=== PATIENT | male | born 2000 | race Caucasian/White ===

== ENCOUNTER 2024-03-04 20:07 | Emergency (ER) | payer SELFPAY ==
--- OUTSIDE RECORDS SUMMARY | 2024-03-04 20:14 | XMS REPORT | Continuity of Care Document ---
Author Name Unknown Address [address] [place] [address] [facility] Address [address] [place] [address] Care Team Providers Care Red Leader Name Role Phone FOUND, PCP NOT Primary Care Physician Unavailab MEI Chen Attending Clinician Unavailable Doctor Unassigned, [place] Attending Clinician U brennan Love MD, Rowdy Chowdhury Attending Clinician Kenan Mathew MD Attending Clinician Physician, No Primary or Family Admitting Clinic kwasi Unavailable Payers Payer Name Policy Type Policy Number Effective Date Expirati on Date Source Problems Condition Name Condition Details Condition Category Status Onset Date Resolution Date Last Treatment Date Treating Clinician Comments Source ODD (oppositio nal defiant disorder) ODD (oppositio nal defiant disorder) Disease Active 06-16 00:00: 00 [facility] Parent-chi ld relational problem Parent-chi ld relational problem Disease Active 6-05 00:00: 00 [facility] Bipolar I disorder, most recent episode (or current) unspecifie d Bipolar I disorder, most recent episode (or current) unspecifie d Disease Active 3-20 00:00: 00 [facility] Ingrown left greater toenail Ingrown left greater toenail Disease Active 04-14 00:00: 00 [facility] ADHD (attention deficit hyperactiv ity disorder), combined type ADHD (attention deficit hyperactiv ity disorder), combined type Disease Active 04-07 00:00: 00 [facility] Opposition al defiant disorder Opposition al defiant disorder Disease Active 04-07 00:00: 00 [facility] Allergies, Adverse Reactions, Alerts Allergy Name Allergy Type Status Severity Reaction(s) Onset Date Inactive Date Treating Clinician Comments Source risperid one DA Active MO 07-24 00:00: 00 [facility] risperid one DA Active MO DROWSINESS 07-24 00:00: 00 [facility] PENICILL IN DRUG INGREDI Active Unknown-Cmnt 02-24 00:00: 00 [facility] Penicill in Propensi ty to adverse reaction s Active Unknown - See comments 02-24 00:00: 00 "Makes him look like a zombie"Mo ther and grandnvth er state no rxn to penicilli n. Pt reports rxn. [facility] Penicill in Propensi ty to adverse reaction s Active Unknown - See comments 02-24 00:00: 00 "Makes him look like a zombie"Mo ther and grandmoth er state no rxn to penicilli n. Pt reports rxn. [facility] No Known Allergie s DA Active U 18 00:00: 00 [facility] D-CHLORP HEIRAM-P YRILAMIN -PE-DM DRUG Active Other-Cmnt 2013-11 1-10 00:00: 00 [facility] D-Chlorp heiram-P yrilamin -Pe-Dm Propensi ty to adverse reaction s Active Other - See comments 2013-11 00:00: 00 "Makes him grow breasts." [facility] Social History Social Habit Start Date Stop Date Quantity Comments Source Exposure to SARS-CoV-2 (event) Not sure [facility] Sex Assigned At [facility] Tobacco use and exposure 2017-09-10 00:00:00 2017-09-10 00:00:00 Never used [facility] Alcohol intake 2017-09-10 00:00:00 2017-09-10 00:00:00 Current non-drinker of alcohol (finding) [facility] Tobacco Comment 2017-02-24 00:00:00 2017-02-24 00:00:00 Parents smoke in and out of house [facility] Smoking Status Start Date Stop Date Source Never smoker [facility] Medications Ordered Medication Name Filled Medication Name Start Date Stop Date Current Medication? Ordering Clinician Indication Dosage Frequency Signature (SIG) Comments Components Source predniSONE 20 mg tablet 07-21 00:00: 00 Yes [id number] 40mg PO QD Uni vers [facility] cephALEXin (KEFLEX) 500 mg capsule 07-21 00:00: 00 07-29 04:59 :00 No [id number] 500mg Take 1 capsule by mouth 4 (four) times daily for 7 days. [facility] lithium carbonate 300 mg tablet 2016-11 00:00: 00 Yes Take 1 tab in the morning and 2 tabs at bedtime. [facility] SERTraline 100 mg tablet 2016-11 00:00: 00 Yes 100mg Take 1 tablet by mouth at bedtime. [facility] ziprasidone 20 mg capsule 2016-11 00:00: 00 Yes Take 1 capsule by mouth in the morning and 1 capsule by mouth at bedtime. Take with food. [facility] ziprasidone 80 mg capsule 2016-11 00:00: 00 Yes 80mg Take 1 capsule by mouth at bedtime. Take with food. [facility] acyclovir 200 mg capsule 05-18 00:00: 00 Yes 800 mg, oral, 4 times a day for 7 days [facility] docusate 100 mg capsule 04-30 00:00: 00 Yes 100mg Take 1 capsule by mouth daily. [facility] HYDROcodone -acetaminop hen 5-325 mg tablet 04-30 00:00: 00 Yes 1{tbl} Take 1 tablet by mouth every 6 (six) hours as needed for Pain (scale 7-10). [facility] Vital Signs Vital Name Observation Time Observation Value Comments S jill Systolic blood pressure 2020-07-22 02:54:00 127 mm[Hg] [facility] Diastolic blood pressure 2020-07-22 02:54:00 63 mm[Hg] [facility] Heart rate 2020-07-22 02:54:00 89 /min [facility] Body temperature 2020-07-22 02:54:00 37.17 Comfort [facility] Respiratory rate 2020-07-22 02:54:00 18 /min [facility] Body height 2020-07-22 02:54:00 170.2 cm [facility] Body weight 2020-07-22 02:54:00 95.255 kg [facility] BMI 2020-07-22 02:54:00 32.89 kg/m2 [facility] Oxygen saturation in Arterial blood by Pulse oximetry 2020-07-22 02:54:00 99 /min [facility] Systolic blood pressure 2020-06-17 06:17:00 141 mm[Hg] [facility] Diastolic blood pressure 2020-06-17 06:17:00 74 mm[Hg] [facility] Heart rate 2020-06-17 06:17:00 67 /min [facility] Body temperature 2020-06-17 06:17:00 36.89 Comfort [facility] Respiratory rate 2020-06-17 06:17:00 16 /min [facility] Body weight 2020-06-17 06:17:00 95.255 kg [facility] Oxygen saturation in Arterial blood by Pulse oximetry 2020-06-17 06:17:00 95 /min [facility] Procedures Procedure Date / Time Performed Performing Clinician Source AUTHORIZATION FOR RELEASE OF PHI 2020-08-12 05:01:00 Doctor Unassigned, [place] [facility] XR KNEE <3 VW LEFT 2020-06-17 06:45:00 Kenan Mathew [facility] Encounters Start Date/Time End Date/Time Encounter Type Admission Type Attending Clinicians Care Facility Care Department Encounter ID Source 2021-09-20 14:49:59 Emergency [facility] [id number] [facility] 2021-09-20 08:49:42 Emergency [facility] [id number] [facility] 2020-07-24 01:58:00 Inpatient [facility] [id number] 67 [facility] 2023-07-18 21:41:00 2023-07-19 00:50:00 Emergency [facility] [id number] [facility] 2023-07-18 21:41:00 2023-07-19 00:50:00 emergency [id number] 2020-08-12 00:00:00 2020-08-12 00:00:00 Orders Only Doctor Unassigned, [place] [facility] [id number] [facility] 2020-07-21 22:00:00 2020-07-21 22:36:00 Emergency [facility] ([facility]) [id number] [facility] 2020-06-17 01:18:11 2020-06-17 02:18:00 Emergency Kenan Mathew [facility] [id number] [facility] Results Test Description Test Time Test Comments Results Result Co mments Source - CT L-SPINE W/O [id number] 02:47:00FAX: Alejandra Botello MD [place]: St: REG Name: IVONNE DEL VALLE [facility] : 2000 Age/S: 19/M [address] [facility] Unit: [id number] Loc: [address] Phys: [place] [id number] Acct: [id number] Dis Date: Status: REG ER PHONE #: [phone] Exam Date: 07/24/2020 0231 FAX #: [phone] Reason: LEFT LEG NUMBNESS EXAMS: CPT CODE: [id number] CT L-SPINE W/O CONTRAST [id number] Location: CT lumbar spine, 07/24/20 TECHNIQUE: CT examination of the lumbosacral spine was performed obtaining contiguous slice thickness in the axial plane from the lower thoracic region through the sacrum. Acquisition of 2-D reformatted imaging in the sagittal and coronal plane. This was acquired using MPRsoftware on the CT workstation . The examination was performed on an updated helical CT scanner utilizing low-dose radiation technique. Automatic exposure control was utilized to reduce radiation dose CLINICAL HISTORY: Left leg numbness in this 19 year-old patient presenting to the emergency room COMPARISON EXAM : None of the lumbar spine FINDINGS: Normal alignment is seen. Do not see any transitional anatomy in this patient. The canal is capacious. Do not see a pars defect or fracture. No significant ventral epidural defect is identified. No stenosis or nerve root impingement suspected. No lytic or blastic lesions are identified. Disc space height well maintained. IMPRESSION: Unremarkable CT examination lumbosacral spine Electronically Signed by aWde Westfall on 11/2019 at 0247 Reported and signed by: Mayela Westfall M.D. PAGE 1 Signed Report (CONTINUED) FAX: Alejandra Botello MD [place]: St: REG Name: IVONNE DEL VALLE [facility] : 2000 Age/S: 19/M [address] [facility] Unit: [id number] Loc: [address] Phys: [place] [id number] Acct: [id number] Dis Date: Status: REG ER PHONE #: [phone] Exam Date: 07/24/2020 0231 FAX #: [phone] Reason: LEFT LEG NUMBNESS EXAMS: CPT CODE: [id number] CT L-SPINE W/O CONTRAST [id number] (Continued) CC: Alejandra Zambrano MD Technologist: KUMAR John Dt/Tm: 07/24/2020 (0247) [id number] Orig Print D/T: S: 07/24/2020 (0250 PAGE 2 Signed Report Notes Date/Time Note Provider Source 2020-07-24 02:16:00 [id number] 6:00 [facility] ([facility])EMERGENCY PROVIDER REPORTREPORT#:[id number] REPORT STATUS: SignedDATE:07/24/20 TIME: 215 PATIENT: IVONNE DEL VALLE UNIT #: [id number]#: [id number] ROOM/BED:AGE: 19 SEX: M PCP PHYS: No Primary or Family PhysicianSERVICE AUTHOR: Alejandra Zambrano MD * ALL edits or amendments must be made on the electronic/computer document * HPI-Extremity Prob Lower GeneralConfirmed Patient YesInitial Greet Date/Time 07/24/20 0206 PresentationChief Complaint Leg problem L Free Text HPI NotesFree Text HPI [id number] white male with PMH of bipolar disorder brought in by EMS with complaint of left leg numbness that started when he got up at 1AM in the morningto walk outside to call his mom. Patient said initially he thought his leg was "asleep." Patient states he also had pain shoot down the back of his left leg. Patient denies fever, cough, injury, fall, nausea, vomiting, or back pain. Patient also has a rash on his upper and lower extremities and torso from poisonivy exposure. Review of Systems Free Text ROS NotesFree Text ROS NotesConstitutional: Denies fever, denies chills, denies generalized weaknessENT: Denies nasal congestion, denies sore throatRespiratory: Denies cough, denies dyspnea on exertion, denies shortness of breath, denies wheezingCardiovascular: Denies chest pain, denies MARTINEZ, denies edema, denies orthopnea, denies palpitations, denies syncopeABD: Denies abdominal pain, nausea, vomiting, or diarrhea.Musculoskeletal: Denies back pain, denies extremity pain, denies extremity swelling, denies joint pain, denies joint swelling, denies neck pain, complains of left lower extremity numbnessSkin: Denies laceration, denies rash, denies abrasion, denies abscess, denies erythemaNeurologic: Denies headache, denies focal weakness, denies dizziness, denies LOC, denies altered mental status, denies slurred speech, denies lightheadedness, denies syncope Past Medical History - AdultStated Complaint left leg numbnessAllergiesCoded Allergies:risperidone (From RISPERDAL) (Intermediate, DROWSINESS 07/24/20) Home MedicationsReported MedicationsNo Known Home Medications Discontinued Reported MedicationsARIPiprazole (ABILIFY) 30 MG PO DAILY DIVALPROEX DR (DEPAKOTE DR) 500 MG PO BID Additional Medical HistoryADHDAdditional Surgical HistoryL femur surgeryAlcohol Use Denies EtOH useSmoking status for patients 13 years old or older: 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 Physical Exam Vital SignsVital SignsFirst Documented: Result Date Time Pulse Ox 96 07/24 0200 B/P 137/70 07/24 0200 B/P Mean 92 07/24 0200 O2 Delivery Room air 07/24 0200 Temp 37.2 07/24 0200 Pulse 82 07/24 0200 Resp 18 07/24 0200 Last Documented: Result Date Time Pulse Ox 95 07/24 0510 B/P 119/62 07/24 0510 B/P Mean 81 07/24 0510 O2 Delivery Room air 07/24 0510 Temp 37.1 07/24 0510 Pulse 62 07/24 0510 Resp 18 07/24 0510 Review of Vital Signs Reviewed Free Text PE NotesFree Text PE NotesGEN: Well-appearing/NAD, awake, alert, not toxic appearing, cooperativeHead: Atraumatic/normocephalic Eyes: PERRLA, conjunctiva clear, EOMI, no nystagmusENT: Atraumatic, airway patent, mucous membranes moist, pharynx normalNeck: Supple, no meningismus, full range of motion, no adenopathy, no midline vertebral tenderness, no tracheal deviationRESP: No respiratory distress, atraumatic, no rales, no rhonchi, no wheezing, noretractionsCV: Heart rate normal, regular rhythm, no gallop, no murmurs, no rubsABD: Atraumatic, soft, nontender, no guarding, no rebound, no distentionEXT: No gross abnormalities, moves all extremities equally, no neurovascular compromise, no deformitiesSkin: Atraumatic, color normal, patient has rash consistent with Arleen dermatitison abdomen/torso, bilateral upper and lower extremities, warm, dry, turgor normalNeuro: Oriented x3, speech normal, no motor deficits, no sensory deficits, CN II- XII grossly intactPsych: Normal thought content Interpretation Diagnostics Lab Results InterpretationResultsLaboratory Tests: 07/24 255 Toxicology Urine Opiates Screen (NEGATIVE) NEGATIVE Urine Methadone Screen (NEGATIVE) NEGATIVE Urine Barbiturates (NEGATIVE) NEGATIVE Ur Phencyclidine Scrn (NEGATIVE) NEGATIVE Ur Amphetamines Screen (NEGATIVE) NEGATIVE U Benzodiazepines Scrn (NEGATIVE) NEGATIVE Urine Cocaine Screen (NEGATIVE) NEGATIVE Urine Cannabinoids (NEGATIVE) NEGATIVE Recent Impressions:CAT SCAN - CT L-SPINE W/O CONTRAST 07/24 0231 Report Impression - Status: SIGNED Entered: 07/24/2020 0250 IMPRESSION: Unremarkable CT examination lumbosacral spine Impression By: Heath - Mayela Westfall M.D. Re-Evaluation MDM Re-Evaluation/ProgressRe-Evaluation/Progress 1 Text/Dict NotePatient ambulated to the bathroom without difficulty or assistance. He had a normal gait. Time of Re-Eval 7Re-Evaluation/Progress 2 Text/Dict NoteDiscussed test results with patient. Advised patient to follow-up with PCP and advised patient return to ED if condition worsens. Patient has remained medically stable during the ER visit. Time of Re-Eval 512 Re-Eval Status Improved Patient Discharge Departure Vital Signs/ConditionVital SignsFirst Documented: Result Date Time Pulse Ox 96 07/24 0200 B/P 137/70 / 0200 B/P Mean 92 07/24 0200 O2 Delivery Room air 07/24 0200 Temp 37.2 07/24 0200 Pulse 82 09/ 0200 Resp 18 07/24 0200 Last Documented: Result Date Time Pulse Ox 95 / 0510 B/P 119/62 / 0510 B/P Mean 81 / 0510 O2 Delivery Room air / 0510 Temp 37.1 / 0510 Pulse 62 / 0510 Resp 18 / 0510 All vital signs available at the time of this entry have been reviewed. Condition Stable Clinical ImpressionClinical ImpressionPrimary Impression: Paresthesia Disposition DecisionDischarge )( Discharged to Home Yes )( Time 05 )( Date 07/24/20 Discharge/Care Plan(Auto) PrescriptionsCurrent Visit ScriptsNo Known Home Medications ReferralsNo Primary or Family Physician (PCP/Family) at 0558RPT #:[id number] OF REPORTEDEmergency department [id number]:16:[id number] ilable for patient [id number]:58:38 [facility]
[2024-03-04 21:28] LABS: SARS-CoV-2 Antigen CONTROL BLUE LINE VIS/BG OK; SARS-CoV-2 Antigen Rapid Res Negative (Negative)
[2024-03-04] MEDS ORDERED: ONDANSETRON 4 MG (ODT) TAB ONE (22:21)
--- NOTE | 2024-03-04 22:27 | ER ---
Nurse's Notes [facility] Name: Carl Palmer Age: 23 yrs Sex: Male : 2000 Arrival Date: 03/04/2024 Time: 20:07 Bed DX3 Private MD: Diagnosis: Nausea with vomiting, unspecified;Diarrhea, unspecified;Influenza due to other identified influenza virus with gastrointestinal manifestations Presentation: 03/04 20:40 Chief complaint: Patient states: he hasn't had much of an appetite and has been feeling ap3 off for approx 1-2 weeks. patient reports nausea/vomiting this morning followed by a nose bleed. Coronavirus screen: At this time, the client does not indicate any symptoms associated with coronavirus-19. Ebola Screen: No symptoms or risks identified at this time. Initial Sepsis Screen: Does the patient meet any 2 criteria? No. Patient's initial sepsis screen is negative. Does the patient have a suspected source of infection? No. Patient's initial sepsis screen is negative. Risk Assessment: Do you want to hurt yourself or someone else? Patient reports no desire to harm self or others. Onset of symptoms is unknown. 20:40 Method Of Arrival: Ambulatory ap3 20:40 Acuity: NIKHIL 3 ap3 Triage Assessment: 20:42 General: Appears in no apparent distress. Behavior is calm, cooperative, appropriate ap3 for age. Pain: Denies pain. EENT: Reports nasal discharge that is bloody. Neuro: Level of Consciousness is awake, alert, obeys commands, Oriented to person, place, time, situation. Cardiovascular: Patient's skin is warm and dry. Respiratory: Airway is patent Respiratory effort is even, unlabored, Respiratory pattern is regular, symmetrical. GI: Reports nausea, vomiting. Historical: - Allergies: 20:42 No Known Allergies; ap3 - Home Meds: 20:42 None [Active]; ap3 - PMHx: 20:42 None; ap3 - Immunization history:: Client reports receiving the 2nd dose of the Covid vaccine, Flu vaccine is not up to date. - Infectious Disease History:: Denies. - Social history:: Smoking status: Reported history of juuling and/or vaping. Patient uses alcohol, occasionally. Screenin:43 [facility] ED Fall Risk Assessment (Adult) History of falling in the last 3 months, ap3 including since admission No falls in past 3 months (0 pts) Confusion or Disorientation No (0 pts) Intoxicated or Sedated No (0 pts) Impaired Gait No (0 pts) Mobility Assist Device Used No (0 pt) Altered Elimination No (0 pt) Score/Fall Risk Level 0 - 2 = Low Risk Oriented to surroundings, Maintained a safe environment, Educated pt \T\ family on fall prevention, incl call for assistance when getting out of bed, Assessed \T\ reinforced patient's understanding of fall precautions, Provided non-skid footwear, Hourly rounding (assess needs \T\ fall precautionary measures) done, Used ambulatory aids as needed (educated on \T\ assisted with), Used gait belt as appropriate. Abuse screen: Denies threats or abuse. Nutritional screening: No deficits noted. Tuberculosis screening: No symptoms or risk factors identified. Assessment: 21:52 General: Appears in no apparent distress. comfortable, well groomed, well developed, pf1 Behavior is calm, cooperative, appropriate for age, quiet. 21:52 Pain: Denies pain. Neuro: No deficits noted. Level of Consciousness is awake, alert, pf1 obeys commands, Oriented to person, place, time, situation. Cardiovascular: No deficits noted. Capillary refill < 3 seconds Patient's skin is warm and dry. Respiratory: No deficits noted. Airway is patent Respiratory effort is even, unlabored, Respiratory pattern is regular, symmetrical, Breath sounds are clear bilaterally. GI: Reports nausea, with decrease in appetite. : No deficits noted. No signs and/or symptoms were reported regarding the genitourinary system. EENT: Reports nasal discharge that is bloody. Derm: No deficits noted. No signs and/or symptoms reported regarding the dermatologic system. Musculoskeletal: No deficits noted. No signs and/or symptoms reported regarding the musculoskeletal system. Vital Signs: 20:40 BP 117 / 69; Pulse 64; Resp 17; Temp 98.7; Pulse Ox 100% ; Weight 99.79 kg; Height 5 ap3 ft. 8 in. ; 21:52 BP 113 / 65; Pulse 70; Resp 16; Temp 98; Pulse Ox 99% on R/A; Pain 0/10; pf1 20:40 Body Mass Index 33.45 (99.79 kg, 172.72 cm) ap3 21:52 Pain Scale: Adult pf1 ED Course: 20:19 Patient arrived in ED. gm2 20:42 Triage completed. ap3 20:43 Arm band placed on right wrist. ap3 20:45 Bennett rFancois PA is PHCP. cp 20:45 Leo Coburn MD is Attending Physician. cp 20:49 COVID swab sent to lab. Strep swab sent to lab. flu swab sent to lab. pf1 20:57 Strep Sent. ap3 20:57 SARS RAPID Sent. ap3 20:57 Influenza Screen (a \T\ B) Sent. ap3 21:52 Patient has correct armband on for positive identification. pf1 22:48 Provided Education on: prescriptions. pf1 22:48 No provider procedures requiring assistance completed. Patient did not have IV access pf1 during this emergency room visit. Administered Medications: 22:22 Drug: Ondansetron PO 4 mg PO once Route: PO; ap3 22:48 Follow up: Response: No adverse reaction; Marked relief of symptoms; Nausea is decreasedpf1 Medication: 22:48 VIS not applicable for this client. pf1 Outcome: 22:26 Discharge ordered by . cp 22:47 Discharged to home ambulatory, pf1 22:47 Condition: improved 22:47 Discharge instructions given to patient, Instructed on discharge instructions, follow up and referral plans. Demonstrated understanding of instructions, follow-up care, medications, Prescriptions given X 2, 22:48 Patient left the ED. pf1 Signatures: Bennett Francois PA PA cp Prokisch, Amanda RN RN ap3 Maria C Yanes RN RN pf1 Lindsay Jimenez gm2
--- NOTE | 2024-03-04 22:27 | EDPHYS ---
Physician Documentation [facility] Name: Carl Palmer Age: 23 yrs Sex: Male : 2000 Arrival Date: 03/04/2024 Time: 20:07 Bed DX3 Private MD: ED Physician Leo Coburn HPI: 03/04 20:55 This 23 yrs old Male presents to ER via Ambulatory with complaints of Nose Bleed, cp Nausea/Vomiting. 20:55 Patient is a 23-year-old male with no significant past medical history who presents cp emergency department with complaints of nausea, several episodes of vomiting and diarrhea that started this morning. Patient then goes on to complain that he just has not felt himself for the past 1 to 2 weeks but this morning is when he started having no nausea, vomiting, diarrhea. Patient also reports that he had a nosebleed earlier today that has since resolved. Historical: - Allergies: 20:42 No Known Allergies; ap3 - Home Meds: 20:42 None [Active]; ap3 - PMHx: 20:42 None; ap3 - Immunization history:: Client reports receiving the 2nd dose of the Covid vaccine, Flu vaccine is not up to date. - Infectious Disease History:: Denies. - Social history:: Smoking status: Reported history of juuling and/or vaping. Patient uses alcohol, occasionally. ROS: 21:00 Constitutional: Negative for body aches, chills, fever, cp 21:00 Eyes: Negative for injury, pain, redness, and discharge, cp 21:00 ENT: Positive for history of nose bleed, 21:00 Cardiovascular: Negative for chest pain, palpitations, 21:00 Respiratory: Negative for cough, shortness of breath, wheezing, 21:00 Abdomen/GI: Positive for nausea and vomiting, diarrhea, Negative for constipation, hematemesis, 21:00 Skin: Negative for rash, 21:00 Neuro: Negative for altered mental status, dizziness, headache, weakness, 21:00 All other systems are negative, Exam: 21:05 Constitutional: The patient appears in no acute distress, alert, awake, comfortable, cp non-toxic, well developed, well nourished, 21:05 Head/Face: Normocephalic, atraumatic. cp 21:05 Eyes: Periorbital structures: appear normal, Conjunctiva: normal, no exudate, no injection, Sclera: no appreciated abnormality, Lids and lashes: appear normal, bilaterally, 21:05 ENT: External ear(s): are unremarkable, Nose: is normal, Mouth: Lips: moist, Oral mucosa: pink and intact, moist, Posterior pharynx: Airway: no evidence of obstruction, patent, 21:05 Chest/axilla: Inspection: normal, 21:05 Cardiovascular: Rate: normal, Rhythm: regular, 21:05 Respiratory: the patient does not display signs of respiratory distress, Respirations: normal, no use of accessory muscles, no retractions, labored breathing, is not present, Breath sounds: are clear throughout, no decreased breath sounds, no stridor, no wheezing, 21:05 Abdomen/GI: Inspection: abdomen appears normal, Palpation: abdomen is soft and non-tender, in all quadrants, Vital Signs: 20:40 BP 117 / 69; Pulse 64; Resp 17; Temp 98.7; Pulse Ox 100% ; Weight 99.79 kg; Height 5 ap3 ft. 8 in. ; 21:52 BP 113 / 65; Pulse 70; Resp 16; Temp 98; Pulse Ox 99% on R/A; Pain 0/10; pf1 20:40 Body Mass Index 33.45 (99.79 kg, 172.72 cm) ap3 21:52 Pain Scale: Adult pf1 MDM: 20:45 Patient medically screened. 21:00 Differential diagnosis: gastritis, appendicitis, viral gastroenteritis, gastroenteritis. 22:25 Data reviewed: vital signs, nurses notes, lab test result(s). 22:25 I considered the following discharge prescriptions or medication management in the emergency department Medications were administered in the Emergency Department. See MAR. Counseling: I had a detailed discussion with the patient and/or guardian regarding the historical points, exam findings, and any diagnostic results supporting the discharge/admit diagnosis, lab results, to return to the emergency department if symptoms worsen or persist or if there are any questions or concerns that arise at home. 03/04 20:51 Order name: Influenza Screen (a \T\ B); Complete Time: 21:42 03/04 21:42 Interpretation: Reviewed. 03/04 20:51 Order name: SARS RAPID; Complete Time: 21:42 03/04 20:51 Order name: Strep cp 03/04 21:30 Order name: Throat Culture EDMS Administered Medications: 22:22 Drug: Ondansetron PO 4 mg PO once Route: PO; ap3 22:48 Follow up: Response: No adverse reaction; Marked relief of symptoms; Nausea is decreasedpf1 Disposition Summary: 03/04/24 22:26 Discharge Ordered Notes: Location: Home cp Problem: new cp Symptoms: have improved cp Condition: Stable cp Diagnosis - Nausea with vomiting, unspecified cp - Diarrhea, unspecified cp - Influenza due to other identified influenza virus with gastrointestinal cp manifestations Followup: cp - With: Private Physician - When: 2 - 3 days - Reason: Worsening of condition Discharge Instructions: - Discharge Summary Sheet cp - Food Choices to Help Relieve Diarrhea, Adult cp - Diarrhea, Adult cp - Influenza, Adult cp - Nausea and Vomiting, Adult cp - Form - Excuse from Work, School, or Physical Activity cp Forms: - Medication Reconciliation Form cp - Thank You Letter cp - Antibiotic Education cp - Prescription Opioid Use cp - Patient Portal Instructions cp - Leadership Thank You Letter cp Prescriptions: - Zofran 4 mg Oral Tablet - take 1 tablet ORAL route every 12 hours As needed; 20 tablet; Refills: 0, cp Product Selection Permitted - Tamiflu 75 mg Oral capsule - take 1 tablet ORAL route every 12 hours for 5 days; 10 tablet; Refills: 0, cp Product Selection Permitted Addendum: 03/07/2024 09:44 I was immediately available for consultation during this patient's visit. I did not e c2 personally see the patient or discuss the patient with the IMTIAZ. . Signatures: Dispatcher [employer] Bennett Telles PA PA cp Prokisch, Amanda, RN RN ap3 Leo Coburn MD MD ec2 Maria C Yanes RN pf1
[2024-03-05 05:59] VITALS: BP 117/69; TEMP 98.7; O2SAT 100
== END 2024-03-04 22:48 | disposition home or self-care (01) ==
LOC: ER 20:07
DX: J10.2 Influenza due to other identified influenza virus with gastrointestinal manifestations (principal); R19.7 Diarrhea, unspecified; Z11.52 Encounter for screening for COVID-19
CPT/HCPCS: 36415; 87070; 87081; 87804; 87811; 99284; Q0162

== ENCOUNTER 2024-03-11 15:27 | Emergency (ER) | payer SELFPAY ==
--- OUTSIDE RECORDS SUMMARY | 2024-03-11 15:30 | XMS REPORT | Continuity of Care Document ---
Author Name Unknown Address [address] [facility] [address] [place] [address] [facility] thconnect Address [address] [facility] [address] [place] [address] Care Team Providers Care Industrial Engineering Intern Name Role Phone FOUND, PCP NOT Primary Care Physician Unavailab MEI Chen Attending Clinician Unavailable Doctor Unassigned, Albia Attending Clinician U brennan Love MD, Rowdy [...] defiant disorder) Disease Active 06-16 00:00: 00 [facility] Parent-chi ld relational problem Parent-chi ld relational problem Disease Active 6-05 00:00: 00 [facility] Bipolar I disorder, most recent episode (or current) unspecifie d Bipolar I disorder, most recent episode (or current) unspecifie d Disease Active 3-20 00:00: 00 [facility] Ingrown left greater toenail Ingrown left greater toenail Disease Active 04-14 00:00: 00 [facility] ADHD (attention deficit hyperactiv ity disorder), combined type ADHD (attention deficit hyperactiv ity disorder), combined type Disease Active 04-07 00:00: 00 [facility] Opposition al defiant disorder Opposition al defiant disorder Disease Active 04-07 00:00: 00 [facility] Allergies, Adverse Reactions, Alerts Allergy Name Allergy Type Status Severity Reaction(s) Onset Date Inactive Date Treating Clinician Comments Source risperid one DA Active MO 07-24 00:00: 00 [facility] risperid one DA Active MO DROWSINESS 07-24 00:00: 00 [facility] PENICILL IN DRUG INGREDI Active Unknown-Cmnt 02-24 00:00: 00 [facility] Penicill in Propensi ty to adverse reaction s Active Unknown - See comments 02-24 00:00: 00 "Makes him look like a zombie"[facility] no rx[facility] penicilli n. Pt reports rxn. [facility] Penicill in Propensi ty to adverse reaction s Active Unknown - See comments 02-24 00:00: 00 "Makes him look like a zombie"[facility] no rxn to penicilli n. Pt reports rxn. [facility] No Known Allergie s DA Active U 05-10 00:00: 00 [facility] D-CHLORP HEIRAM-P YRILAMIN -PE-DM DRUG Active Other-Cmnt 2013-11 1-10 00:00: 00 [facility] D-Chlorp heiram-P yrilamin -Pe-Dm Propensi ty to adverse reaction s Active Other - See comments 2013-11 00:00: 00 "Makes him grow breasts." [facility] Social History Social Habit Start Date Stop Date Quantity Comments Source Exposure to SARS-CoV-2 (event) Not sure [facility] Sex Assigned At [facility] Tobacco use and exposure 2017-09-10 00:00:00 2017-09-10 00:00:00 Never used [facility] Alcohol intake 2017-09-10 00:00:00 2017-09-10 00:00:00 Current non-drinker of alcohol (finding) [facility] Tobacco Comment 2017-02-24 00:00:00 2017-02-24 00:00:00 Parents smoke in and out of house [facility] Smoking Status Start Date Stop Date Source Never smoker [facility] Medications Ordered Medication Name Filled Medication Name Start Date Stop Date Current Medication? Ordering Clinician Indication Dosage Frequency Signature (SIG) Comments Components Source predniSONE 20 mg tablet 07-21 00:00: 00 Yes [id number] 40mg PO QD Uni vers [facility] cephALEXin (KEFLEX) 500 mg capsule 07-21 00:00: 00 07-29 04:59 :00 No [id number] 500mg Take 1 capsule by mouth 4 (four) times daily for 7 days. [facility] lithium carbonate 300 mg tablet 2016-11 00:00: 00 Yes Take 1 tab in the morning and 2 tabs at bedtime. [facility] SERTraline 100 mg tablet 2016-11 00:00: 00 Yes 100mg Take 1 tablet by mouth at bedtime. [facility] ziprasidone 20 mg capsule 2016-11 00:00: 00 Yes Take 1 capsule by mouth in the morning and 1 capsule by mouth at bedtime. Take with food. [facility] ziprasidone 80 mg capsule 2016-11 00:00: 00 Yes 80mg Take 1 capsule by mouth at bedtime. Take with food. [facility] acyclovir 200 mg capsule 05-18 00:00: 00 Yes 800 mg, oral, 4 times a day for 7 days [facility] docusate 100 mg capsule 04-30 00:00: 00 Yes 100mg Take 1 capsule by mouth daily. [facility] HYDROcodone -acetaminop hen 5-325 mg tablet 04-30 00:00: 00 Yes 1{tbl} Take 1 tablet by mouth every 6 (six) hours as needed for Pain (scale 7-10). [facility] Vital Signs Vital Name Observation Time Observation Value Comments S jill Systolic blood pressure 2020-07-22 02:54:00 127 mm[Hg] [facility] Diastolic blood pressure 2020-07-22 02:54:00 63 mm[Hg] [facility] Heart rate 2020-07-22 02:54:00 89 /min [facility] Body temperature 2020-07-22 02:54:00 37.17 Comfort [facility] Respiratory rate 2020-07-22 02:54:00 18 /min [facility] Body height 2020-07-22 02:54:00 170.2 cm [facility] Body weight 2020-07-22 02:54:00 95.255 kg [facility] BMI 2020-07-22 02:54:00 32.89 kg/m2 [facility] Oxygen saturation in Arterial blood by Pulse oximetry 2020-07-22 02:54:00 99 /min [facility] Systolic blood pressure 2020-06-17 06:17:00 141 mm[Hg] [facility] Diastolic blood pressure 2020-06-17 06:17:00 74 mm[Hg] [facility] Heart rate 2020-06-17 06:17:00 67 /min [facility] Body temperature 2020-06-17 06:17:00 36.89 Comfort [facility] Respiratory rate 2020-06-17 06:17:00 16 /min [facility] Body weight 2020-06-17 06:17:00 95.255 kg [facility] Oxygen saturation in Arterial blood by Pulse oximetry 2020-06-17 06:17:00 95 /min [facility] Procedures Procedure Date / Time Performed Performing Clinician Source AUTHORIZATION FOR RELEASE OF PHI 2020-08-12 05:01:00 Doctor Unassigned, Albia [facility] XR KNEE <3 VW LEFT 2020-06-17 06:45:00 Kenan Mathew Un [facility] Encounters Start Date/Time End Date/Time Encounter Type Admission Type Attending Clinicians Care Facility Care Department Encounter ID Source 2021-09-20 14:49:59 Emergency [facility] [id number] [facility] 2021-09-20 08:49:42 Emergency [facility] [id number] [facility] 2020-07-24 01:58:00 Inpatient [facility] KARYN [id number] 67 [facility] 2023-07-18 21:41:00 2023-07-19 00:50:00 emergency [id number] 2023-07-18 21:41:00 2023-07-19 00:50:00 Emergency [facility] [id number] [facility]ERT[facility] 2020-08-12 00:00:00 2020-08-12 00:00:00 Orders Only Doctor Unassigned, Albia [facility] 1.0.114 [id number] [facility] 2020-07-21 22:00:00 2020-07-21 22:36:00 Emergency Rowdy Love [facility] ([facility]) 1.0.114 [id number] [facility] 2020-06-17 01:18:11 2020-06-17 02:18:00 Emergency Kenan Mathew [facility] 1.20.114 [id number] [facility] Results Test Description Test Time Test Comments Results Result Co mments Source - CT L-SPINE W/O [id number] 02:47:00FAX: Alejandra Botello MD [place]: St: REG Name: IVONNE DEL VALLE [facility] : 2000 Age/S: 19/M [address] [facility] Unit: [id number] Loc: [address] Phys: [place] [address] Acct: [id number] Dis Date: Status: REG ER PHONE #: [phone] Exam Date: 07/24/2020 0231 FAX #: [phone] Reason: LEFT LEG NUMBNESS EXAMS: CPT CODE: [id number] CT L-SPINE W/O CONTRAST 09659 Location: H3CT lumbar spine, 07/24/20 TECHNIQUE: CT examination of the lumbosacral spine was performed obtaining contiguous slice thickness in the axial plane from the lower thoracic region through the sacrum. Acquisition of 2- D reformatted imaging in the sagittal and coronal plane. This was acquired using MPRsoftware on the CT workstation . The examination was performed on an updated helical CT scanner utilizing low-dose radiation technique. Automatic exposure control was utilized to reduce radiation dose CLINICAL HISTORY: Left leg numbness in this 19 year-old patient presenting to the emergency room C OMPARISON EXAM : None of the lumbar spine FINDINGS: Normal alignment is seen. Do not see any transitional anatomy in this patient. The canal is capacious. Do not see a pars defect or fracture. No significant ventral epidural defect is identified. No stenosis or nerve root impingement suspected. No lytic or blastic lesions are identified. Disc space height well maintained. IMPRESSION: UnremarkableCT examination lumbosacral spine at 0247 Reported and signed by: Mayela Westfall M.D. PAGE 1 Signed Report (CONTINUED) FAX: Alejandra Botello MD [place]: St: REG Name: IVONNE DEL VALLE [facility] : 2000 Age/S: 19/M [address] [facility] Unit: [id number] Loc: [address] Phys: [place] [address] Acct: [id number] Dis Date: Status: REG ER PHONE #: [phone] Exam Date: 07/24/2020 0231 FAX #: [phone] Reason: LEFT LEG NUMBNESS EXAMS: CPT CODE: [id number] CT L-SPINE W/O CONTRAST 30242 (Continued) CC: Alejandra Zambrano MD Technologist: KUMAR John Dt/Tm: 07/24/2020 (0247) Mary Beth.DAS6 Orig Print D/T: S: 07/24/2020 (0250 PAGE 2 Signed Report Notes Date/Time Note Provider Source 2020-07-24 02:16:00 [id number]:1 6:00 [facility] ([facility])EMERGENCY PROVIDER REPORTREPORT#:[id number] REPORT STATUS: SignedDATE:07/24/20 TIME: 215 PATIENT: IVONNE DEL VALLE UNIT #: [id number]#: [id number] ROOM/BED:AGE: 19 SEX: M PCP PHYS: No Primary or Family PhysicianSERVICE AUTHOR: Alejandra Zambrano MD * ALL edits or amendments must be made on the electronic/computer document * HPI-Extremity Prob Lower GeneralConfirmed Patient YesInitial Greet Date/Time 07/24/20 0206 PresentationChief Complaint Leg problem L Free Text HPI NotesFree Text HPI [id number]-wfeu-hgb white male with PMH of bipolar disorder [...] MedicationsARIPiprazole (ABILIFY) 30 MG PO DAILY DIVALPROEX (DEPAKOTE ) 500 MG PO BID Additional Medical HistoryADHDAdditional [...] 0200 Pulse 82 09/ 0200 Resp 18 / 0200 Last Documented: Result Date Time Pulse Ox 95 / 0510 B/P 119/62 / 0510 B/P Mean 81 / 0510 O2 Delivery Room air 07/24 0510 Temp 37.1 / 0510 Pulse 62 / 0510 Resp 18 07/24 0510 All vital signs available at the time of this entry have been reviewed. Condition Stable Clinical ImpressionClinical ImpressionPrimary Impression: Paresthesia Disposition DecisionDischarge )( Discharged to Home Yes )( Time 05 )( Date 07/24/20 Discharge/Care Plan(Auto) PrescriptionsCurrent Visit ScriptsNo Known Home Medications ReferralsNo Primary or Family Physician (PCP/Family) at 0558RPT #:[id number] OF REPORTEDEmergency department [id number]:16:[id number] ilable for patient [id number]:58:38 [facility]
--- NOTE | 2024-03-11 15:49 | EDPHYS ---
Physician Documentation [facility] Name: Carl Palmer Age: 23 yrs Sex: Male : 2000 Arrival Date: 03/11/2024 Time: 15:27 Bed IW1 Private MD: ED Physician Dora Alston HPI: 03/11 15:50 This 23 yrs old Male presents to ER via Ambulatory with complaints of Work note. sb4 15:50 diagnosed with the flu here 1 week ago. feels completely improved, no complaints. sb4 requesting release/note to return to work. Historical: - Allergies: 15:46 SEAFOOD; ll1 - PMHx: 15:46 None; ll1 - Immunization history:: Adult Immunizations up to date. - Infectious Disease History:: Denies. - Social history:: Smoking status: Patient denies any tobacco usage or history of. ROS: 15:50 Constitutional: Negative for fever, chills, and weight loss, sb4 15:50 All other systems are negative, Exam: 15:50 Constitutional: This is a well developed, well nourished patient who is awake, alert, sb4 and in no acute distress. Head/Face: Normocephalic, atraumatic. Eyes: Extra-ocular motions intact. Periorbital areas with no swelling, redness, or edema. ENT: Mucous membranes moist. Cardiovascular: Regular rate and rhythm with a normal S1 and S2. Respiratory: Lungs have equal breath sounds bilaterally, clear to auscultation and percussion. No rales, rhonchi or wheezes noted. No increased work of breathing, no retractions or nasal flaring. Abdomen/GI: Soft, non-tender, no distension. Skin: Warm, dry with normal turgor. Normal color with no rashes, no lesions, and no evidence of cellulitis. MS/ Extremity: Pulses equal, no cyanosis. Neurovascular intact. Full, normal range of motion. Vital Signs: 15:45 BP 136 / 82; Pulse 75; Resp 16; Temp 98; Pulse Ox 100% ; ll1 MDM: 15:32 Patient medically screened. sb4 15:50 Data reviewed: vital signs, nurses notes, and as a result, I will discharge patient. sb4 Administered Medications: No medications were administered Disposition Summary: 03/11/24 15:48 Discharge Ordered Notes: Location: Home sb4 Problem: new sb4 Symptoms: are unchanged sb4 Condition: Stable sb4 Diagnosis - Encounter for general adult medical examination without abnormal findings sb4 Followup: sb4 - With: Emergency Department - When: As needed - Reason: Trouble breathing, Worsening of condition Discharge Instructions: - Discharge Summary Sheet sb4 Forms: - Work release form sb4 - Thank You Letter sb4 - Patient Portal Instructions sb4 - Leadership Thank You Letter sb4 Signatures: Jan Carlisle RN RN ll1 Valencia Younger PA-C PA-C sb4 Corrections: (The following items were deleted from the chart) 15:47 15:46 Allergies: No Known Allergies; ll1 ll1
--- NOTE | 2024-03-11 15:49 | ER ---
Nurse's Notes [facility] Name: Carl Palmer Age: 23 yrs Sex: Male : 2000 Arrival Date: 03/11/2024 Time: 15:27 Bed IW1 Private MD: Diagnosis: Encounter for general adult medical examination without abnormal findings Presentation: 03/11 15:45 Chief complaint: Patient states: HERE LAST THURSDAY, + FOR FLU, NOW NEEDS WORK NOTE. ll1 Coronavirus screen: At this time, the client does not indicate any symptoms associated with coronavirus-19. Ebola Screen: No symptoms or risks identified at this time. Initial Sepsis Screen: Does the patient meet any 2 criteria? No. Patient's initial sepsis screen is negative. Does the patient have a suspected source of infection? No. Patient's initial sepsis screen is negative. Risk Assessment: Do you want to hurt yourself or someone else? Patient reports no desire to harm self or others. Onset of symptoms is unknown. 15:45 Method Of Arrival: Ambulatory ll1 15:45 Acuity: NIKHIL 5 ll1 Triage Assessment: 15:47 General: Appears in no apparent distress. Behavior is calm, cooperative, appropriate ll1 for age. General: HAD FLU LAST WEEK, NEEDS WORK NOTE. FEELS BETTER. Pain: Denies pain. Historical: - Allergies: 15:46 SEAFOOD; ll1 - PMHx: 15:46 None; ll1 - Immunization history:: Adult Immunizations up to date. - Infectious Disease History:: Denies. - Social history:: Smoking status: Patient denies any tobacco usage or history of. Screenin:51 [facility] ED Fall Risk Assessment (Adult) History of falling in the last 3 months, ll1 including since admission No falls in past 3 months (0 pts) Confusion or Disorientation No (0 pts) Intoxicated or Sedated No (0 pts) Impaired Gait No (0 pts) Mobility Assist Device Used No (0 pt) Altered Elimination No (0 pt) Score/Fall Risk Level 0 - 2 = Low Risk Maintained a safe environment. Abuse screen: Denies threats or abuse. Nutritional screening: No deficits noted. Tuberculosis screening: No symptoms or risk factors identified. Assessment: 15:51 Reassessment: No changes from previously documented assessment. Patient and/or family ll1 updated on plan of care and expected duration. Pain level reassessed. Patient is alert, oriented x 3, equal unlabored respirations, skin warm/dry/pink. Vital Signs: 15:45 BP 136 / 82; Pulse 75; Resp 16; Temp 98; Pulse Ox 100% ; ll1 ED Course: 15:29 Patient arrived in ED. mr 15:29 Valencia Younger [facility] sb4 15:29 Dora Alston MD is Attending Physician. sb4 15:46 Triage completed. ll1 15:47 Arm band placed on. ll1 15:51 Patient has correct armband on for positive identification. Provided Education on: N/A. ll1 15:51 No provider procedures requiring assistance completed. Patient did not have IV access ll1 during this emergency room visit. Administered Medications: No medications were administered Medication: 15:52 VIS not applicable for this client. ll1 Outcome: 15:48 Discharge ordered by . sb4 15:51 Discharged to home ambulatory, ll1 15:51 Condition: stable 15:51 Discharge instructions given to patient, Instructed on discharge instructions, follow up and referral plans. Demonstrated understanding of instructions, follow-up care, 15:52 Patient left the ED. ll1 Signatures: Marry Marroquin, Reg Reg mr Jan Carlisle, RN RN ll1 Valencia Younger PA-C PA-C sb4 Corrections: (The following items were deleted from the chart) 15:47 15:46 Allergies: No Known Allergies; ll1 ll1
[2024-03-11 16:45] VITALS: BP 136/82; TEMP 98; O2SAT 100
== END 2024-03-11 15:52 | disposition home or self-care (01) ==
LOC: ER 15:27
DX: Z02.79 Encounter for issue of other medical certificate (principal)
CPT/HCPCS: 99282

== ENCOUNTER 2024-03-30 22:55 | Emergency (ER) | payer OTHER ==
--- OUTSIDE RECORDS SUMMARY | 2024-03-30 22:58 | XMS REPORT | Continuity of Care Document ---
Author Name Unknown Address [phone] [facility] thconnect Address [address] 1 [phone] Care Team Providers Care Property Loss Insurance Claim Adjuster Name Role Phone FOUND, PCP NOT Primary Care Physician Unavailab MEI Chen Attending Clinician Unavailable Doctor Unassigned, [place] Attending Clinician U brennan Love MD, Rowdy Chowdhury Attending Clinician Kenan Mathew MD Attending Clinician [phone] Physician, No Primary or Family Admitting Clinic kwasi Unavailable Payers Payer Name Policy Type Policy Number Effective Date Expirati on Date Source Problems Condition Name Condition Details Condition Category Status Onset Date Resolution Date Last Treatment Date Treating Clinician Comments Source ODD (oppositio nal defiant disorder) ODD (oppositio nal defiant disorder) Disease Active 06-16 00:00: 00 [facility] Parent-chi ld relational problem Parent-chi ld relational problem Disease Active 6-05 00:00: 00 [facility] Bipolar I disorder, most recent episode (or current) unspecifie d Bipolar I disorder, most recent episode (or current) unspecifie d Disease Active 3-20 00:00: 00 [facility] Ingrown left greater toenail Ingrown left greater toenail Disease Active 04-14 00:00: 00 [facility] ADHD (attention deficit hyperactiv ity disorder), combined type ADHD (attention deficit hyperactiv ity disorder), combined type Disease Active 04-07 00:00: 00 [facility] Opposition al defiant disorder Opposition al defiant disorder Disease Active 04-07 00:00: 00 [facility] Allergies, Adverse Reactions, Alerts Allergy Name Allergy Type Status Severity Reaction(s) Onset Date Inactive Date Treating Clinician Comments Source risperid one DA Active MO 07-24 00:00: 00 [facility] risperid one DA Active MO DROWSINESS 07-24 00:00: 00 [facility] PENICILL IN DRUG INGREDI Active Unknown-Cmnt 02-24 00:00: 00 [facility] Penicill in Propensi ty to adverse reaction s Active Unknown - See comments 02-24 00:00: 00 "Makes him look like a zombie"[facility] ther and [facility] er state no rxn to penicilli n. Pt reports rxn. [facility] Penicill in Propensi ty to adverse reaction s Active Unknown - See comments 02-24 00:00: 00 "Makes him look like a zombie"Mo ther and grandmoth er state no rxn to penicilli n. Pt reports rxn. [facility] No Known Allergie s DA Active U 05-10 00:00: 00 [facility] D-CHLORP HEIRAM-P YRILAMIN -PE-DM DRUG Active Other-Cmnt 2013-11 1-10 00:00: 00 [facility] D-Chlorp heiram-P yrilamin -Pe-Dm Propensi ty to adverse reaction s Active Other - See comments 2013-11 00:00: 00 "Makes him grow breasts." [facility] Social History Social Habit Start Date Stop Date Quantity Comments Source Exposure to SARS-CoV-2 (event) Not sure [facility] Sex Assigned At [facility] Tobacco use and exposure 2017-09-10 00:00:00 2017-09-10 00:00:00 Never used [facility] Alcohol intake 2017-09-10 00:00:00 2017-09-10 00:00:00 Current non-drinker of alcohol (finding) [facility] Tobacco Comment 2017-02-24 00:00:00 2017-02-24 00:00:00 Parents smoke in and out of house [facility] Smoking Status Start Date Stop Date Source Never smoker [facility] Medications Ordered Medication Name Filled Medication Name Start Date Stop Date Current Medication? Ordering Clinician Indication Dosage Frequency Signature (SIG) Comments Components Source predniSONE 20 mg tablet 07-21 00:00: 00 Yes [id number] 40mg PO QD [facility] cephALEXin (KEFLEX) 500 mg capsule 07-21 00:00: 00 07-29 04:59 :00 No [id number] 500mg Take 1 capsule by mouth 4 (four) times daily for 7 days. [facility] lithium carbonate 300 mg tablet 2016-11 00:00: 00 Yes Take 1 tab in the morning and 2 tabs at bedtime. [facility] SERTraline 100 mg tablet 2016-11 00:00: 00 Yes 100mg Take 1 tablet by mouth at bedtime. [facility] ziprasidone 20 mg capsule 2016-11 00:00: 00 Yes Take 1 capsule by mouth in the morning and 1 capsule by mouth at bedtime. Take with food. [facility] ziprasidone 80 mg capsule 2016-11 00:00: 00 Yes 80mg Take 1 capsule by mouth at bedtime. Take with food. [facility] acyclovir 200 mg capsule 05-18 00:00: 00 Yes 800 mg, oral, 4 times a day for 7 days [facility] docusate 100 mg capsule 04-30 00:00: 00 Yes 100mg Take 1 capsule by mouth daily. [facility] HYDROcodone -acetaminop hen 5-325 mg tablet 04-30 00:00: 00 Yes 1{tbl} Take 1 tablet by mouth every 6 (six) hours as needed for Pain (scale 7-10). [facility] Vital Signs Vital Name Observation Time Observation Value Comments S jill Systolic blood pressure 2020-07-22 02:54:00 127 mm[Hg] [facility] Diastolic blood pressure 2020-07-22 02:54:00 63 mm[Hg] [facility] Heart rate 2020-07-22 02:54:00 89 /min [facility] Body temperature 2020-07-22 02:54:00 37.17 Comfort [facility] Respiratory rate 2020-07-22 02:54:00 18 /min [facility] Body height 2020-07-22 02:54:00 170.2 cm [facility] Body weight 2020-07-22 02:54:00 95.255 kg [facility] BMI 2020-07-22 02:54:00 32.89 kg/m2 [facility] Oxygen saturation in Arterial blood by Pulse oximetry 2020-07-22 02:54:00 99 /min [facility] Systolic blood pressure 2020-06-17 06:17:00 141 mm[Hg] [facility] Diastolic blood pressure 2020-06-17 06:17:00 74 mm[Hg] [facility] Heart rate 2020-06-17 06:17:00 67 /min [facility] Body temperature 2020-06-17 06:17:00 36.89 Comfort [facility] Respiratory rate 2020-06-17 06:17:00 16 /min [facility] Body weight 2020-06-17 06:17:00 95.255 kg [facility] Oxygen saturation in Arterial blood by Pulse oximetry 2020-06-17 06:17:00 95 /min [facility] Procedures Procedure Date / Time Performed Performing Clinician Source AUTHORIZATION FOR RELEASE OF PHI 2020-08-12 05:01:00 Doctor Unassigned, [place] [facility] XR KNEE <3 VW LEFT 2020-06-17 06:45:00 Kenan Mathew [facility] Encounters Start Date/Time End Date/Time Encounter Type Admission Type Attending Clinicians Care Facility Care Department Encounter ID Source 2021-09-20 14:49:59 Emergency [facility] [id number] [facility] 2021-09-20 08:49:42 Emergency [facility] [id number] [facility] 2020-07-24 01:58:00 Inpatient [facility] [id number] [facility] 2023-07-18 21:41:00 2023-07-19 00:50:00 Emergency [id number] JOAN James Cortez [facility] 2023-07-18 21:41:00 2023-07-19 00:50:00 emergency [id number] 2020-08-12 00:00:00 2020-08-12 00:00:00 Orders Only Doctor Unassigned, [place] [facility] 1..114 [id number] [facility] 2020-07-21 22:00:00 2020-07-21 22:36:00 Emergency Rowdy Love [facility] 1.0.114 [id number] [facility] 2020-06-17 01:18:11 2020-06-17 02:18:00 Emergency Kenan Mathew [facility] 1.0.114 [id number] [facility] Results Test Description Test Time Test Comments Results Result Co mments Source - CT L-SPINE W/O [id number] 02:47:00FAX: Alejandra Botello MD [place]: St: REG Name: IVONNE DEL VALLE [facility] : 2000 Age/S: 19/M [address] [facility] Unit: [id number] Loc: [address] Phys: [place] [id number] Acct: [id number] Dis Date: Status: REG ER PHONE #: [phone] Exam Date: 07/24/2020 0231 FAX #: [phone] Reason: LEFT LEG NUMBNESS EXAMS: CPT CODE: [id number] CT L-SPINE W/O CONTRAST 85702 Location: H3CT lumbar spine, 07/24/20 TECHNIQUE: CT [...] Signed Report (CONTINUED) FAX: Alejandra Botello MD [place]: St: REG Name: IVONNE DEL VALLE [facility] : 2000 Age/S: 19/M [address] [facility] Unit: [id number] Loc: E.ERS[address] [place] [address] [place]: [place] [id number] Acct: [id number] Dis Date: Status: REG ER PHONE #: [phone] Exam Date: 07/24/2020 0231 FAX #: [phone] Reason: LEFT LEG NUMBNESS EXAMS: CPT CODE: [id number] CT L-SPINE W/O CONTRAST 94205 (Continued) CC: Alejandra Zambrano MD Technologist: KUMAR John Dt/Tm: 07/24/2020 (0247) Mary Beth.DAS6 Orig Print D/T: S: 07/24/2020 (0250 PAGE 2 Signed Report Notes Date/Time Note Provider Source 2020-07-24 02:16:00 [id number] 6:00 [facility] ([facility])EMERGENCY PROVIDER REPORTREPORT#:[id number] REPORT STATUS: SignedDATE:07/24/20 TIME: 215 PATIENT: IVONNE DEL VALLE UNIT #: [id number]#: [id number] ROOM/BED:AGE: 19 SEX: M PCP PHYS: No Primary or Family PhysicianSERVICE AUTHOR: Alejandra Zambrano MD * ALL edits or amendments must be made on the electronic/computer document * HPI-Extremity Prob Lower GeneralConfirmed Patient YesInitial Greet Date/Time 07/24/20 0206 PresentationChief Complaint Leg problem L Free Text HPI NotesFree Text HPI [id number] white male with PMH of bipolar disorder [...] B/P 137/70 07/24 0200 B/P Mean 92 07/240 O2 Delivery Room air 07/24 0200 Temp [...] had a normal gait. Time of Re-Eval 0257Re-Evaluation/Progress 2 Text/Dict NoteDiscussed test results with patient. [...] 0200 Temp 37.2 07/24 0200 Pulse 82 / 0200 Resp 18 / 0200 Last Documented: [...] Primary or Family Physician (PCP/Family) at 0558RPT #:[id number] OF REPORTEDEmergency department [id number]:16:[id number] ilable for patient [id number]:38 [facility]
[2024-03-30] MEDS ORDERED: IBUPROFEN 400 MG TAB ONE (23:17)
[2024-03-30] MEDS ORDERED: IBUPROFEN 200 MG TAB PO ONE (23:17)
--- NOTE | 2024-03-31 00:30 | EDPHYS ---
Physician Documentation [facility] Name: Carl Palmer Age: 23 yrs Sex: Male : 2000 Arrival Date: 03/30/2024 Time: 22:55 Bed 16 Private MD: ED Physician Oscar Barnett HPI: 03/31 00:27 This 23 yrs old Male presents to ER via Wheelchair with complaints of Ankle Injury - kb work related, Ankle Swelling. 00:27 Pt is a 23 year old male who presents for left ankle pain after twisting it at work kb around 1330 today. states he has been limping since then and the pain and swelling are not improving. Historical: - Allergies: 03/30 23:07 SEAFOOD; tl4 - Home Meds: 23:07 None [Active]; tl4 - PMHx: 23:07 None; tl4 - PSHx: 23:07 None; tl4 - Immunization history:: Adult Immunizations unknown. - Infectious Disease History:: Denies. - Social history:: Smoking status: Patient denies any tobacco usage or history of. ROS: 03/31 00:26 Constitutional: As per HPI kb Exam: 00:26 Constitutional: This is a well developed, well nourished patient who is awake, alert, kb and in no acute distress. Head/Face: Normocephalic, atraumatic. ENT: Moist Mucous membranes Cardiovascular: Regular rate Respiratory: Respirations even and unlabored. No increased work of breathing. Talking in full sentences Skin: Warm, dry with normal turgor. Normal color. Neuro: Awake and alert, GCS 15, oriented to person, place, time, and situation. Moves all extremities. Normal gait. 00:26 Musculoskeletal/extremity: Extremities: grossly normal except: noted in the left ankle: pain, swelling, tenderness, ROM: intact in all extremities, Circulation is intact in all extremities. Sensation intact. Weight bearing: able to fully bear weight, Vital Signs: 03/30 23:08 BP 123 / 77; Pulse 83; Resp 16; Temp 99.2(O); Pulse Ox 99% on R/A; Weight 99.79 kg; tl4 Height 5 ft. 9 in. ; Pain 8/10; 03/31 00:45 BP 117 / 64; Pulse 59; Resp 19; Temp 97.3(TE); Pulse Ox 99% on R/A; Pain 0/10; tm6 03/30 23:08 Body Mass Index 32.49 (99.79 kg, 175.26 cm) tl4 03/30 23:08 Pain Scale: Adult tl4 03/31 00:45 Pain Scale: Adult tm6 MDM: 03/30 22:59 Patient medically screened. kb 03/31 00:27 Differential diagnosis: fracture, sprain. Data reviewed: vital signs, nurses notes. kb Counseling: I had a detailed discussion with the patient and/or guardian regarding the historical points, exam findings, and any diagnostic results supporting the discharge/admit diagnosis, radiology results, the need for outpatient follow up, a family practitioner, to return to the emergency department if symptoms worsen or persist or if there are any questions or concerns that arise at home. 03/30 23:05 Order name: Ankle Left 3 View XRAY kb 03/31 00:29 Order name: Antonio Wrap; Complete Time: 00:36 kb 03/31 00:29 Order name: Crutches; Complete Time: 00:36 kb Administered Medications: 03/30 23:20 Drug: Ibuprofen PO 600 mg PO once Route: PO; rv Disposition: 03/31 03:24 Co-signature as Attending Physician, Oscar Barnett MD I agree with the assessment sp4 and plan of care. I reviewed the patient's care provided by the Advanced Practice Provider and agree with the diagnosis and treatment plan. Disposition Summary: 03/31/24 00:30 Discharge Ordered Notes: Location: Home kb Condition: Stable kb Diagnosis - Sprain of ankle kb Followup: kb - With: Emergency Department - When: As needed - Reason: Worsening of condition Followup: kb - With: Private Physician - When: 2 - 3 days - Reason: Recheck today's complaints, Continuance of care, Re-evaluation by your physician Discharge Instructions: - Discharge Summary Sheet kb - Ankle Sprain, [id number]-[id number] kb Forms: - Medication Reconciliation Form kb - Antibiotic Education kb - Prescription Opioid Use kb - Patient Portal Instructions kb - Leadership Thank You Letter kb Prescriptions: - Ibuprofen 800 mg Oral Tablet - take 1 tablet ORAL route every 8 hours As needed take with food; 30 tablet; kb Refills: 0, Product Selection Permitted Signatures: Dispatcher [employer] EDMigdalia Martinez FNP-C ASSEMBLER TYPE BAR AND SEGMENT-Ckb Joseph He, RN RN rv Oscar Barnett MD MD sp4 Saran Tripathi RN RN tl4 Corrections: (The following items were deleted from the chart) 03/30 23:05 23:05 Ankle Left 3 View+RAD.RAD.BRZ ordered. EDMS EDMS
--- NOTE | 2024-03-31 00:30 | ER ---
Nurse's Notes [facility] Name: Carl Palmer Age: 23 yrs Sex: Male : 2000 Arrival Date: 03/30/2024 Time: 22:55 Bed 16 Private MD: Diagnosis: Sprain of ankle Presentation: 03/30 23:06 Chief complaint: Patient states: Pt states he "rolled" his left ankle on a rock at tl4 approx 1400 today. Pt states minimal weight bearing. Coronavirus screen: At this time, the client does not indicate any symptoms associated with coronavirus-19. Ebola Screen: No symptoms or risks identified at this time. Initial Sepsis Screen: Does the patient meet any 2 criteria? No. Patient's initial sepsis screen is negative. Does the patient have a suspected source of infection? No. Patient's initial sepsis screen is negative. Risk Assessment: Do you want to hurt yourself or someone else? Patient reports no desire to harm self or others. Onset of symptoms was March 30, 2024 at 14:00. 23:06 Method Of Arrival: Wheelchair tl4 23:06 Acuity: NIKHIL 4 tl4 Triage Assessment: 23:07 General: Appears in no apparent distress. Behavior is calm, cooperative. Pain: tl4 Complains of pain in left foot. EENT: No signs and/or symptoms were reported regarding the EENT system. Neuro: Level of Consciousness is awake, alert, obeys commands, Oriented to person, place, time, situation, Moves all extremities. Full function Speech is normal. Cardiovascular: Capillary refill < 3 seconds Patient's skin is warm and dry. Respiratory: Airway is patent Respiratory effort is even, unlabored, Respiratory pattern is regular, symmetrical. GI: No signs and/or symptoms were reported involving the gastrointestinal system. : No signs and/or symptoms were reported regarding the genitourinary system. Derm: No signs and/or symptoms reported regarding the dermatologic system. Musculoskeletal: Reports pain in left foot. Historical: - Allergies: 23:07 SEAFOOD; tl4 - Home Meds: 23:07 None [Active]; tl4 - PMHx: 23:07 None; tl4 - PSHx: 23:07 None; tl4 - Immunization history:: Adult Immunizations unknown. - Infectious Disease History:: Denies. - Social history:: Smoking status: Patient denies any tobacco usage or history of. Screenin:20 [facility] ED Fall Risk Assessment (Adult) History of falling in the last 3 months, rv including since admission No falls in past 3 months (0 pts) Score/Fall Risk Level 0 - 2 = Low Risk Oriented to surroundings, Maintained a safe environment, Educated pt \\T\\ family on fall prevention, incl call for assistance when getting out of bed, Assessed \\T\\ reinforced patient's understanding of fall precautions. Abuse screen: Denies threats or abuse. Denies injuries from another. Nutritional screening: No deficits noted. Tuberculosis screening: No symptoms or risk factors identified. Assessment: 23:20 General: Appears comfortable, Behavior is calm, cooperative. Pain: Complains of pain in rv left foot. Neuro: Level of Consciousness is awake, alert, obeys commands, Oriented to person, place, time, situation. Cardiovascular: Capillary refill < 3 seconds Patient's skin is warm and dry. Respiratory: Airway is patent Respiratory effort is even, unlabored. Musculoskeletal: Range of motion: limited in left ankle. 03/31 00:45 Reassessment: Patient appears in no apparent distress at this time. Patient and/or tm6 family updated on plan of care and expected duration. Pain level reassessed. Patient is alert, oriented x 3, equal unlabored respirations, skin warm/dry/pink. Vital Signs: 03/30 23:08 BP 123 / 77; Pulse 83; Resp 16; Temp 99.2(O); Pulse Ox 99% on R/A; Weight 99.79 kg; tl4 Height 5 ft. 9 in. ; Pain 8/10; 03/31 00:45 BP 117 / 64; Pulse 59; Resp 19; Temp 97.3(TE); Pulse Ox 99% on R/A; Pain 0/10; tm6 03/30 23:08 Body Mass Index 32.49 (99.79 kg, 175.26 cm) tl4 03/30 23:08 Pain Scale: Adult tl4 03/31 00:45 Pain Scale: Adult tm6 ED Course: 03/30 22:58 Patient arrived in ED. ra3 22:59 Migdalia Hussein [facility]C [facility] kb 22:59 Oscar Barnett MD is Attending Physician. kb 23:07 Triage completed. tl4 23:08 Arm band placed on right wrist. tl4 23:15 Joseph He, RN is Primary Nurse. rv 23:20 Patient has correct armband on for positive identification. Client placed on continuous rv cardiac and pulse oximetry monitoring. NIBP monitoring applied. 23:20 No provider procedures requiring assistance completed. Patient did not have IV access rv during this emergency room visit. 23:32 Ankle Left 3 View XRAY In Process Unspecified. EDMS 03/31 00:45 Crutch training done. Antonio wrap to left ankle and left foot. tm6 00:46 Provided Education on: use of crutches. tm6 Administered Medications: 03/30 23:20 Drug: Ibuprofen PO 600 mg PO once Route: PO; rv Medication: 23:20 VIS not applicable for this client. rv Outcome: 03/31 00:30 Discharge ordered by MD. kb 00:46 Discharged to home with crutches, tm6 00:46 Condition: stable 00:46 Discharge instructions given to patient, Instructed on discharge instructions, follow up and referral plans. crutch walking, Demonstrated understanding of instructions, follow-up care, crutch walking, Prescriptions given X 1, 00:46 Patient left the ED. tm6 Signatures: Dispatcher [employer] EDOH Migdalia Hussein, POULTRY PINNER-C POULTRY PINNER-Ckb Joseph He, RN RN Mikaela Stapleton RN RN tm6 Saran Tripathi RN RN tl4 Etelvina Muñoz ra3
[2024-03-31 01:22] VITALS: BP 117/64; TEMP 97.3; O2SAT 99
--- NOTE | 2024-03-31 12:51 | RAD REPORT ---
EXAM DESCRIPTION: RAD - Ankle Left 3 View - 03/30/2024 11:30 pm CLINICAL HISTORY: PAIN COMPARISON: None TECHNIQUE: 3 views of the left ankle. FINDINGS: Normal mineralization. No acute fracture or dislocation. Joint spaces are maintained. IMPRESSION: No acute osseous findings. Electronically signed by: Sinan Shabazz MD 03/30/2024 11:35 PM CDT Due to temporary technical issues with the PACS/Fluency reporting system, reports are being signed by the in house radiologist without review as a courtesy to ensure prompt reporting. The interpreting R adiologist is fully responsible for the content of the report.
== END 2024-03-31 00:46 | disposition home or self-care (01) ==
LOC: ER 22:55
DX: S93.402A Sprain of unspecified ligament of left ankle, initial encounter (principal)
CPT/HCPCS: 99284

== ENCOUNTER 2025-01-30 11:10 | Emergency (ER) | payer OTHER ==
--- OUTSIDE RECORDS SUMMARY | 2025-01-30 11:18 | XMS REPORT | Continuity of Care Document ---
Author Name Unknown Address [address] [facility] [address] [place] [address] [facility] Address [address] [facility] [address] [place] [address] Care Team Providers Care Recruiting Team Lead Name Role Phone FOUND, PCP NOT Primary Care Physician Unavailab MEI Chen Attending Clinician Unavailable Doctor Unassigned, [place] Attending Clinician U brennan Love MD, Rowdy [...] defiant disorder) Disease Active 06-16 00:00: 00 [facility] Parent-chi ld relational problem Parent-chi ld relational problem Disease Active 6-05 00:00: 00 [facility] Bipolar I disorder, most recent episode (or current) unspecifie d Bipolar I disorder, most recent episode (or current) unspecifie d Disease Active 3-20 00:00: 00 [facility] Ingrown left greater toenail Ingrown left greater toenail Disease Active 04-14 00:00: 00 [facility] ADHD (attention deficit hyperactiv ity disorder), combined type ADHD (attention deficit hyperactiv ity disorder), combined type Disease Active 04-07 00:00: 00 [facility] Opposition al defiant disorder Opposition al defiant disorder Disease Active 04-07 00:00: 00 [facility] Allergies, Adverse Reactions, Alerts Allergy Name Allergy Type Status Severity Reaction(s) Onset Date Inactive Date Treating Clinician Comments Source risperid one DA Active MO 07-24 00:00: 00 [facility] risperid one DA Active MO DROWSINESS 07-24 00:00: 00 [facility] PENICILL IN DRUG INGREDI Active Unknown-Cmnt 02-24 00:00: 00 [facility] Penicill in Propensi ty to adverse reaction s Active Unknown - See comments 02-24 00:00: 00 "Makes him look like a zombie"[facility] no rx[facility] to penicilli n. Pt reports rxn. [facility] Penicill in Propensi ty to adverse reaction s Active Unknown - See comments 02-24 00:00: 00 "Makes him look like a zombie"[facility] ther and [facility] er state no rxn to penicilli n. Pt reports rxn. [facility] No Known Allergie s DA Active U 05-10 00:00: 00 [facility] D-CHLORP HEIRAM-P YRILAMIN -PE-DM DRUG Active Other-Cmnt 2013-11 1-10 00:00: 00 [facility] D-Chlorp heiram-P yrilamin -Pe-Dm Propensi ty to adverse reaction s Active Other - See comments 2013-11 00:00: 00 "Makes him grow breasts." [facility] Social History Social Habit Start Date Stop Date Quantity Comments Source Exposure to SARS-CoV-2 (event) Not sure [facility] Sex Assigned At [facility] Tobacco use and exposure 2017-09-10 00:00:00 2017-09-10 00:00:00 Never used [facility] Alcohol intake 2017-09-10 00:00:00 2017-09-10 00:00:00 Current non-drinker of alcohol (finding) [facility] Tobacco Comment 2017-02-24 00:00:00 2017-02-24 00:00:00 Parents smoke in and out of house [facility] Smoking Status Start Date Stop Date Source Never smoker [facility] Medications Ordered Medication Name Filled Medication Name Start Date Stop Date Current Medication? Ordering Clinician Indication Dosage Frequency Signature (SIG) Comments Components Source predniSONE 20 mg tablet 07-21 00:00: 00 Yes [id number] 40mg PO QD Uni vers [facility] cephALEXin (KEFLEX) 500 mg capsule 07-21 00:00: 00 07-29 04:59 :00 No [id number] 500mg Take 1 capsule by mouth 4 (four) times daily for 7 days. [facility] lithium carbonate 300 mg tablet 2016-11 00:00: 00 Yes Take 1 tab in the morning and 2 tabs at bedtime. [facility] SERTraline 100 mg tablet 2016-11 00:00: 00 Yes 100mg Take 1 tablet by mouth at bedtime. [facility] ziprasidone 20 mg capsule 2016-11 00:00: 00 Yes Take 1 capsule by mouth in the morning and 1 capsule by mouth at bedtime. Take with food. [facility] ziprasidone 80 mg capsule 2016-11 00:00: 00 Yes 80mg Take 1 capsule by mouth at bedtime. Take with food. [facility] acyclovir 200 mg capsule 05-18 00:00: 00 Yes 800 mg, oral, 4 times a day for 7 days [facility] docusate 100 mg capsule 04-30 00:00: 00 Yes 100mg Take 1 capsule by mouth daily. [facility] HYDROcodone -acetaminop hen 5-325 mg tablet 04-30 00:00: 00 Yes 1{tbl} Take 1 tablet by mouth every 6 (six) hours as needed for Pain (scale 7-10). [facility] Vital Signs Vital Name Observation Time Observation Value Comments S jill Systolic blood pressure 2020-07-22 02:54:00 127 mm[facility]Hg[facility] Diastolic blood pressure 2020-07-22 02:54:00 63 mm[Hg] [facility] Heart rate 2020-07-22 02:54:00 89 /min [facility] Body temperature 2020-07-22 02:54:00 37.17 Comfort [facility] Respiratory rate 2020-07-22 02:54:00 18 /min [facility] Body height 2020-07-22 02:54:00 170.2 cm [facility] Body weight 2020-07-22 02:54:00 95.255 kg [facility] BMI 2020-07-22 02:54:00 32.89 kg/m2 [facility] Oxygen saturation in Arterial blood by Pulse oximetry 2020-07-22 02:54:00 99 /min [facility] Systolic blood pressure 2020-06-17 06:17:00 141 mm[Hg] [facility] Diastolic blood pressure 2020-06-17 06:17:00 74 mm[Hg] [facility] Heart rate 2020-06-17 06:17:00 67 /min [facility] Body temperature 2020-06-17 06:17:00 36.89 Comfort [facility] Respiratory rate 2020-06-17 06:17:00 16 /min [facility] Body weight 2020-06-17 06:17:00 95.255 kg [facility] Oxygen saturation in Arterial blood by Pulse oximetry 2020-06-17 06:17:00 95 /min [facility] Procedures Procedure Date / Time Performed Performing Clinician Source AUTHORIZATION FOR RELEASE OF PHI 2020-08-12 05:01:00 Doctor Unassigned, [place] [facility] XR KNEE <3 VW LEFT 2020-06-17 06:45:00 Kenan Mathew [facility] Encounters Start Date/Time End Date/Time Encounter Type Admission Type Attending Clinicians Care Facility Care Department Encounter ID Source 2021-09-20 14:49:59 Emergency [facility] [id number] [facility] 2021-09-20 08:49:42 Emergency [facility] [id number] [facility] 2020-07-24 01:58:00 Inpatient [facility] [id number] [facility] 2023-07-18 21:41:00 2023-07-19 00:50:00 Emergency [id number] [facility] 2023-07-18 21:41:00 2023-07-19 00:50:00 emergency [id number] 2020-08-12 00:00:00 2020-08-12 00:00:00 Orders Only Doctor Unassigned, [place] [facility] [id number] [id number] [facility] 2020-07-21 22:00:00 2020-07-21 22:36:[address] [facility] ([facility]) [id number] [id number] [facility] 2020-06-17 01:18:11 2020-06-17 02:18:00 Emergency Kenan Mathew [facility] [id number] [id number] [facility] Results Test Description Test Time Test Comments Results Result Co mments Source - CT L-SPINE W/O [id number] 02:47:00FAX: Alejandra Botello MD [place]: St: REG Name: IVONNE DEL VALLE [facility] : 2000 Age/S: 19/M [address] [facility]: [id number] Loc: [address] Phys: [place] [address] Acct: [id number] Dis Date: Status: REG ER PHONE #: [phone] Exam Date: 07/24/2020 0231 FAX #: [phone] Reason: LEFT LEG NUMBNESS EXAMS: CPT CODE: [id number] CT L-SPINE W/O CONTRAST [id number] Location: CT lumbar spine, 07/24/20 TECHNIQUE: CT [...] CT examination lumbosacral spine Electronically Signed by Wade Westfall on 0 07/24/2020 at 0247 Reported and signed by: Mayela Westfall M.D. PAGE 1 Signed Report (CONTINUED) FAX: Alejandra Botello MD [place]: St: REG Name: IVONNE DEL VALLE [facility] : 2000 Age/S: 19/M [address] [facility] Unit: [id number] Loc: [address] Phys: [place] [address] Acct: [id number] Dis Date: Status: REG ER PHONE #: [phone] Exam Date: 07/24/2020 0231 FAX #: [phone] Reason: LEFT LEG NUMBNESS EXAMS: CPT CODE: [id number] CT L-SPINE W/O CONTRAST [id number] (Continued) CC: Alejandra Zambrano MD Technologist: KUMAR John Dt/Tm: 07/24/2020 (024) [email or web address] OrigPrint D/T: S: 07/24/2020 (0250 PAGE 2 Signed Report Notes Date/Time Note Provider Source 2020-07-24 02:16:00 [facility] ([facility]) EMERGENCY PROVIDER REPORT REPORT#:[id number] REPORT STATUS: Signed DATE:07/24/20 TIME: 215 PATIENT: IVONNE DEL VALLE UNIT #: [id number] ROOM/BED: AGE: 19 SEX: M PCP PHYS: No Primary or Family Physician SERVICE AUTHOR: Alejandra Zambrano MD * ALL edits or amendments must be made on the electronic/computer document * HPI-Extremity Prob Lower General Confirmed Patient Yes Initial Greet Date/Time 07/24/20 0206 Presentation Chief Complaint Leg problem L Free Text HPI Notes Free Text HPI Notes 19-year-old white male with PMH of bipolar disorder brought in by EMS with complaint of left leg numbness that started when he got up at 1AM in the morning to walk outside to call his mom. Patient said initially he thought his leg was "asleep." Patient states he also had pain shoot down the back of his left leg. Patient denies fever, cough, injury, fall, nausea, vomiting, or back pain. Patient also has a rash on his upper and lower extremities and torso from poison judi exposure. Review of Systems Free Text ROS Notes Free Text ROS Notes Constitutional: Denies fever, denies chills, denies generalized weakness ENT: Denies nasal congestion, denies sore throat Respiratory: Denies cough, denies dyspnea on exertion, denies shortness of breath, denies wheezing Cardiovascular: Denies chest pain, denies MARTINEZ, denies edema, denies orthopnea, denies palpitations, denies syncope ABD: Denies abdominal pain, nausea, vomiting, or diarrhea. Musculoskeletal: Denies back pain, denies extremity pain, denies extremity swelling, denies joint pain, denies joint swelling, denies neck pain, complains of left lower extremity numbness Skin: Denies laceration, denies rash, denies abrasion, denies abscess, denies erythema Neurologic: Denies headache, denies focal weakness, denies dizziness, denies LOC , denies altered mental status, denies slurred speech, denies lightheadedness, denies syncope Past Medical History - Adult Stated Complaint left leg numbness Allergies Coded Allergies: risperidone (From RISPERDAL) (Intermediate, DROWSINESS 07/24/20) Home Medications Reported Medications No Known Home Medications Discontinued Reported Medications ARIPiprazole (ABILIFY) 30 MG PO DAILY DIVALPROEX (CHUCK PERSAUD) 500 MG PO BID Additional Medical History ADHD Additional Surgical History L femur surgery Alcohol Use Denies EtOH use Smoking status for patients 13 years old or older: Never Smoker Occupation landscaping Physical Exam Vital Signs Vital Signs First Documented: Result Date Time Pulse Ox 96 07/24 200 B/P 137/70 07/24 200 B/P Mean 92 07/24 200 O2 Delivery Room air 07/24 200 Temp 37.2 07/24 200 Pulse 82 07/24 200 Resp 18 07/24 200 Last Documented: Result Date Time Pulse Ox 95 07/24 05 B/P 119/62 07/24 05 B/P Mean 81 07/24 05 O2 Delivery Room air 07/24 510 Temp 37.1 07/24 510 Pulse 62 07/24 05 Resp 18 07/24 05 Review of Vital Signs Reviewed Free Text PE Notes Free Text PE Notes GEN: Well-appearing/NAD, awake, alert, not toxic appearing, cooperative Head: Atraumatic/normocephalic Eyes: PERRLA, conjunctiva clear, EOMI, no nystagmus ENT: Atraumatic, airway patent, mucous membranes moist, pharynx normal Neck: Supple, no meningismus, full range of motion, no adenopathy, no midline vertebral tenderness, no tracheal deviation RESP: No respiratory distress, atraumatic, no rales, no rhonchi, no wheezing, no retractions CV: Heart rate normal, regular rhythm, no gallop, no murmurs, no rubs ABD: Atraumatic, soft, nontender, no guarding, no rebound, no distention EXT: No gross abnormalities, moves all extremities equally, no neurovascular compromise, no deformities Skin: Atraumatic, color normal, patient has rash consistent with Arleen dermatitis on abdomen/torso, bilateral upper and lower extremities, warm, dry, turgor normal Neuro: Oriented x3, speech normal, no motor deficits, no sensory deficits, CN II - XII grossly intact Psych: Normal thought content Interpretation Diagnostics Lab Results Interpretation Results Laboratory Tests: 07/24 255 Toxicology Urine Opiates Screen (NEGATIVE) NEGATIVE Urine Methadone Screen (NEGATIVE) NEGATIVE Urine Barbiturates (NEGATIVE) NEGATIVE Ur Phencyclidine Scrn (NEGATIVE) NEGATIVE Ur Amphetamines Screen (NEGATIVE) NEGATIVE U Benzodiazepines Scrn (NEGATIVE) NEGATIVE Urine Cocaine Screen (NEGATIVE) NEGATIVE Urine Cannabinoids (NEGATIVE) NEGATIVE Recent Impressions: CAT SCAN - CT L-SPINE W/O CONTRAST 07/24 0231 Report Impression - Status: SIGNED Entered: 07/24/2020 0250 IMPRESSION: Unremarkable CT examination lumbosacral spine Impression By: Heath - Mayela Westfall M.D. Re-Evaluation MDM Re-Evaluation/Progress Re-Evaluation/Progress 1 Text/Dict Note Patient ambulated to the bathroom without difficulty or assistance. He had a normal gait. Time of Re-Eval 025 Re-Evaluation/Progress 2 Text/Dict Note Discussed test results with patient. Advised patient to follow-up with PCP and advised patient return to ED if condition worsens. Patient has remained medically stable during the ER visit. Time of Re-Eval 05 Re-Eval Status Improved Patient Discharge Departure Vital Signs/Condition Vital Signs First Documented: Result Date Time Pulse Ox 96 07/24 0200 B/P 137/70 07/24 0200 B/P Mean 92 / 0200 O2 Delivery Room air 07/24 0200 Temp 37.2 07/24 0200 Pulse 82 / 0200 Resp 18 07/24 0200 Last Documented: Result Date Time Pulse Ox 95 07/24 0510 B/P 119/62 / 0510 B/P Mean 81 / 0510 O2 Delivery Room air 07/24 0510 Temp 37.1 / 0510 Pulse 62 / 0510 Resp 18 / 0510 All vital signs available at the time of this entry have been reviewed. Condition Stable Clinical Impression Clinical Impression Primary Impression: Paresthesia Disposition Decision Discharge )( Discharged to Home Yes )( Time 05 )( Date 07/24/20 Discharge/Care Plan (Auto) Prescriptions Current Visit Scripts No Known Home Medications Referrals No Primary or Family Physician (PCP/Family) at 0558 RPT #:[id number] END OF REPORT [facility]
--- NOTE | 2025-01-30 11:36 | ER ---
Nurse's Notes [facility] Name: Carl Palmer Age: 24 yrs Sex: Male : 2000 Arrival Date: 01/30/2025 Time: 11:10 Bed IW1 Private MD: Diagnosis: Vomiting Presentation: 01/30 11:24 Chief complaint: Vomit x 2 and nausea since this morning, headache x 3 days. Needs work hb note. Coronavirus screen: At this time, the client does not indicate any symptoms associated with coronavirus-19. Ebola Screen: No symptoms or risks identified at this time. Initial Sepsis Screen: Does the patient meet any 2 criteria? No. Patient's initial sepsis screen is negative. Does the patient have a suspected source of infection? No. Patient's initial sepsis screen is negative. Risk Assessment: Do you want to hurt yourself or someone else? Patient reports no desire to harm self or others. Onset of symptoms was January 28, 2025. 11:24 Method Of Arrival: Ambulatory hb 11:24 Acuity: NIKHIL 3 hb Historical: - Allergies: 11:25 SEAFOOD; hb - Home Meds: 11:25 None [Active]; hb - PMHx: 11:25 None; hb - PSHx: 11:25 Left Leg; hb - Immunization history:: Adult Immunizations up to date. - Infectious Disease History:: Denies. - Social history:: Smoking status: Reported history of juuling and/or vaping. Vital Signs: 11:24 BP 124 / 79; Pulse 76; Resp 16; Temp 97.1(TE); Pulse Ox 100% on R/A; Weight 97.52 kg; hb Height 5 ft. 9 in. ; Pain 12/02; 11:24 Body Mass Index 31.75 (97.52 kg, 175.26 cm) hb 11:24 Pain Scale: Adult hb ED Course: 11:15 Patient arrived in ED. [id number] 11:16 Bennett Francois PA is PHCP. cp 11:16 Stuart Perez MD is Attending Physician. cp 11:25 Triage completed. hb 11:25 Arm band placed on. hb Administered Medications: No medications were administered Outcome: 11:35 Discharge ordered by . cp 11:41 Patient left the ED. hb Signatures: Bennett Francois PA PA cp Baxter, Heather, KRYSTAL RN hb Lakeisha Patel [email or web address] Corrections: (The following items were deleted from the chart) 11:26 11:24 Chief complaint: Vomit x 2 and nausea since this morning, headache x 3 days. hb hb
--- NOTE | 2025-01-30 11:36 | EDPHYS ---
Physician Documentation [facility] Name: Carl Palmer Age: 24 yrs Sex: Male : 2000 Arrival Date: 01/30/2025 Time: 11:10 Bed IW1 Private MD: ED Physician Stuart Perez HPI: 01/30 11:30 This 24 yrs old Male presents to ER via Ambulatory with complaints of Nausea/Vomiting. cp 11:30 The patient presents to the emergency department with vomiting, 2 times today. Onset: cp The symptoms/episode began/occurred this morning. Possible causes: unknown. Associated signs and symptoms: Pertinent negatives: abdominal pain, constipation, diarrhea, fever, cough, active vomiting. Severity of symptoms: in the emergency department the symptoms have resolved and did so earlier today. 11:30 Patient requesting note to return to work. cp Historical: - Allergies: 11:25 SEAFOOD; hb - Home Meds: 11:25 None [Active]; hb - PMHx: 11:25 None; hb - PSHx: 11:25 Left Leg; hb - Immunization history:: Adult Immunizations up to date. - Infectious Disease History:: Denies. - Social history:: Smoking status: Reported history of juuling and/or vaping. ROS: 11:33 Abdomen/GI: Positive for vomiting, cp 11:33 Eyes: Negative for injury, pain, redness, and discharge, cp 11:33 Constitutional: Negative for body aches, chills, fever, 11:33 ENT: Negative for drainage from ear(s), ear pain, sore throat, difficulty swallowing, difficulty handling secretions, 11:33 Respiratory: Negative for cough, shortness of breath, wheezing, 11:33 Neuro: Positive for headache, Negative for altered mental status, dizziness, weakness, 11:33 All other systems are negative, Exam: 11:33 Head/Face: Normocephalic, atraumatic. cp 11:33 Constitutional: The patient appears in no acute distress, alert, awake, comfortable, non-toxic, well developed, well nourished, 11:33 Eyes: Periorbital structures: appear normal, Conjunctiva: normal, no exudate, no cp injection, Sclera: no appreciated abnormality, Lids and lashes: appear normal, bilaterally, 11:33 ENT: External ear(s): are unremarkable, Nose: is normal, Mouth: Lips: moist, Oral mucosa: moist, Posterior pharynx: Airway: no evidence of obstruction, patent, 11:33 Chest/axilla: Inspection: normal, :33 Cardiovascular: Rate: normal, Rhythm: regular, :33 Respiratory: the patient does not display signs of respiratory distress, Respirations: cp normal, no use of accessory muscles, no retractions, labored breathing, is not present, Breath sounds: are clear throughout, no decreased breath sounds, no stridor, no wheezing, :33 Abdomen/GI: Inspection: abdomen appears normal, Bowel sounds: active, all quadrants, Palpation: soft, in all quadrants, mild abdominal tenderness, in all quadrants, :33 Back: pain, is absent, ROM is normal, :33 Neuro: Orientation: to person, place \T\ time. Mentation: is normal, Vital Signs: 11:24 BP 124 / 79; Pulse 76; Resp 16; Temp 97.1(TE); Pulse Ox 100% on R/A; Weight 97.52 kg; hb Height 5 ft. 9 in. ; Pain 12/02; 11:24 Body Mass Index 31.75 (97.52 kg, 175.26 cm) hb 11:24 Pain Scale: Adult hb MDM: 11:29 Medical Screening Exam initiated cp 11:35 Data reviewed: vital signs, nurses notes, and as a result, I will discharge patient. cp 11:35 Differential diagnosis: gastritis, viral gastroenteritis, gastroenteritis. Counseling: cp I had a detailed discussion with the patient and/or guardian regarding the historical points, exam findings, and any diagnostic results supporting the discharge/admit diagnosis, to return to the emergency department if symptoms worsen or persist or if there are any questions or concerns that arise at home. Administered Medications: No medications were administered Disposition: 01/31 07:02 Co-signature as Attending Physician, Stuart Perez MD I reviewed the patient's care rn provided by the Advanced Practice Provider and agree with the diagnosis and treatment plan. Disposition Summary: 01/30/25 11:35 Discharge Ordered Notes: Location: Home cp Problem: new cp Symptoms: are resolved cp Condition: Stable cp Diagnosis - Vomiting cp Followup: cp - With: Private Physician - When: 1 - 2 days - Reason: Worsening of condition Discharge Instructions: - Vomiting, Adult cp - Form - Return To Work cp - Discharge Summary Sheet hb Forms: - Medication Reconciliation Form cp - Antibiotic Education cp - Prescription Opioid Use cp - Patient Portal Instructions cp - Leadership Thank You Letter cp - Work release form hb Signatures: Stuart Perez MD MD rn Bennett Francois PA PA cp Baxter, Heather RN RN hb
[2025-01-30 11:54] VITALS: BP 124/79; TEMP 97.1; O2SAT 100
== END 2025-01-30 11:41 | disposition home or self-care (01) ==
LOC: ER 11:10
DX: R11.10 Vomiting, unspecified (principal)
CPT/HCPCS: 99281

== ENCOUNTER 2025-02-22 17:37 | Emergency (ER) | payer OTHER ==
--- NOTE | 2025-02-22 18:35 | RAD REPORT ---
EXAMINATION: Tib Fib Left CLINICAL INDICATION: Leg pain FINDINGS: No fracture seen.
--- NOTE | 2025-02-22 18:37 | RAD REPORT ---
EXAM:Femur Left CLINICAL HISTORY: Left leg pain FINDINGS: No fracture seen
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
[2025-02-22 20:02] VITALS: TEMP 98
[2025-02-22 20:03] VITALS: BP 120/70; O2SAT 96
== END 2025-02-22 19:55 | disposition home or self-care (01) ==
LOC: ER 17:37
DX: S80.02XA Contusion of left knee, initial encounter (principal); S80.12XA Contusion of left lower leg, initial encounter; V79.50XA Passenger on bus injured in collision with unspecified motor vehicles in traffic accident, initial encounter